=== PATIENT | female | born 1995 | race Caucasian/White ===

== ENCOUNTER 2021-04-28 18:20 | Inpatient (IN) | payer OTHER, SELFPAY ==
[2021-04-28] VITALS (54 sets, daily range): BP systolic 84–145; BP diastolic 45–82; PULSE 66–98; TEMP 36.7–37.3; O2SAT 97–100; BMI 35.3
[2021-04-28 18:18] LABS: ROM Internal Control Test YES-OK TO RESULT pt. (Internal QC)
[2021-04-28 18:19] LABS: ROM Patient Test POSITIVE (Negative)
[2021-04-28] MEDS: Lactated Ringers 500 ML 999 ML IV ×3 (18:39→20:52)
[2021-04-28 18:55] LABS: Absolute Neutrophil Count 10.1 X10^3/uL (2.0-7.7); Basophil# 0.03 X10^3/uL; Basophil% 0.2 % (0-1); Eosinophil# 0.06 X10^3/uL; Eosinophils% 0.4 % (0-5); Hematocrit 40.1 % (37-47); Hemoglobin 13.5 g/dL (12.0-15.0); Lymphocyte % 15.6 % (19-41); Mean Corp Hgb Conc 33.7 g/dL (32-36); Mean Corpuscular Hgb 32.8 pg (27.0-32.0); Mean Corpuscular Volume 97.3 fL (81-99); Mean Platelet Vol. 10.6 fl (6.2-12.0); Monocyte# 1.09 X10^3/uL; Monocyte% 8.1 % (0-10); NRBC Flagged by Analyzer 0 % (0-5); Neutrophil # 10.12 X10^3/uL (2.7-7.7); Neutrophil % 75.2 % (47-70); Platelet Count 216 K/mm3 (150-450); RBC Distribution Width CV 11.7 % (11.6-14.6); RBC Distribution Width SD 41.8 fl (35.1-43.9); Red Blood Count 4.12 M/mm3 (4.2-5.4); White Blood Count 13.5 K/mm3 (4.4-11.0)
[2021-04-28] MEDS: Lactated Ringers 1,000 ML 200 ML IV ×2 (19:15→23:44)
[2021-04-28] MEDS: fentaNYL-bupivacaine (epidural) 100 ML BAG EPIDURAL (19:41)
[2021-04-28] MEDS: Oxytocin 30 units/NS 500 ml 30 UNITS/500 ML IV.SOLN IV (21:53)
[2021-04-28] MEDS: Acetaminophen 500 MG Tablet PO (23:20)
[2021-04-29] VITALS (26 sets, daily range): BP systolic 98–133; BP diastolic 45–73; PULSE 68–88; RESP 16–18; TEMP 36.4–37.6; O2SAT 95–100
[2021-04-29] MEDS: fentaNYL-bupivacaine (epidural) 100 ML BAG EPIDURAL ×2 (00:54→05:48)
[2021-04-29] MEDS: Mag Hydrox/Al Hydrox/Simeth 30 ML UDC PO (02:43)
[2021-04-29] MEDS: Lactated Ringers 1,000 ML 200 ML IV (05:47)
--- NOTE | 2021-04-29 06:30 | PCM.HP.OB ---
HPI - General General Date of Admission: 04/28/21 HPI Narrative KULWINDER KIMBLE, is a 25 2 para 0-0-1-0 presented on 04/28/2021 with spontaneous rupture membranes. She denied gross vaginal bleeding or leaking fluid. has been complicated to date by POTS syndrome. Maternal Data Information Final CAPO: 04/23/21 Final CAPO Source: US <20 weeks Gestational age: 40 6/7 PFSH PFSH Medical History (Updated 04/29/21 @ 06:[address] Toya Kendall MD) POTS (postural orthostatic tachycardia syndrome) Home Medications prenat.vits,man,kbd-pdan-dizpd [ Vitamin] 1 tab PO DAILY 04/28/21 [History Last Taken 2 Days Ago ~04/26/21] Allergy/AdvReac Type Severity Reaction Status Date / Time mushroom Allergy Swelling Verified 04/28/21 17:24 Family History (Updated 04/28/21 @ 19:34 by Rich Cordoba) Brother Hypoplastic left heart Surgical History (Updated 04/28/21 @ 18:50 by Rich Cordoba) S/P ACL repair S/P MCL (medial collateral ligament) repair Social History Smoking Status: Former smoker History Elective abortions Hx Para 0 Spontaneous abortions Hx # Term Pregnancies Ectopic pregnancies Hx # Pregnancies Multiple births # of living children ROS Constitutional Constitutional: Denies fatigue, fever(s) or malaise Eyes Eyes: Denies change in vision ENT HEENT: Denies dizziness or headache(s) Cardiovascular Cardiovascular: Denies chest pain, dyspnea or lightheadedness Respiratory/Chest Respiratory/Chest: Denies cough or dyspnea Gastrointestinal Gastrointestinal: Denies change in bowel habits Genitourinary Genitourinary: Denies burning urination or genital lesions Integumentary Integumentary: Denies rash Neurologic Neurologic: Denies confusion, dizziness, headache(s), numbness or weakness Vital Signs Vital Signs Vital Signs: 04/28/21 17:12 04/28/21 17:13 04/28/21 17:14 Temperature 98.8 F 98.8 F Temperature Source Temporal Pulse Rate 93 92 Blood Pressure 129/79 H BP Systolic 129 BP Diastolic 79 Pulse Ox 97 97 04/28/21 18:26 04/28/21 19:19 04/28/21 19:20 Temperature Temperature Source Pulse Rate 66 72 Blood Pressure 131/81 H 145/68 H BP Systolic 131 145 BP Diastolic 81 68 Pulse Ox 99 04/28/21 19:24 04/28/21 19:25 04/28/21 19:29 Temperature Temperature Source Pulse Rate 75 Blood Pressure 141/72 H BP Systolic 141 BP Diastolic 72 Pulse Ox 99 100 04/28/21 19:30 04/28/21 19:34 04/28/21 19:35 Temperature Temperature Source Pulse Rate 81 78 Blood Pressure 135/82 H 124/75 H BP Systolic 135 124 BP Diastolic 82 75 Pulse Ox 99 04/28/21 19:40 04/28/21 19:45 04/28/21 19:50 Temperature Temperature Source Pulse Rate 77 97 95 Blood Pressure 132/73 H 132/72 H 129/60 H BP Systolic 132 132 129 BP Diastolic 73 72 60 Pulse Ox 99 99 99 04/28/21 19:55 04/28/21 20:00 04/28/21 20:05 Temperature 98.1 F Temperature Source Temporal Pulse Rate 92 91 98 Blood Pressure 129/61 H 115/55 L 123/61 H BP Systolic 129 115 123 BP Diastolic 61 55 61 Pulse Ox 98 99 98 04/28/21 20:10 04/28/21 20:15 04/28/21 20:20 Temperature Temperature Source Pulse Rate 96 85 93 Blood Pressure 112/51 L 108/58 L BP Systolic 112 108 BP Diastolic 51 58 Pulse Ox 97 98 98 04/28/21 20:22 04/28/21 20:25 04/28/21 20:26 Temperature Temperature Source Pulse Rate 93 80 Blood Pressure 96/52 L 97/52 L BP Systolic 96 97 BP Diastolic 52 52 Pulse Ox 99 04/28/21 20:30 04/28/21 20:32 04/28/21 20:35 Temperature Temperature Source Pulse Rate 87 88 Blood Pressure 104/52 L BP Systolic 104 BP Diastolic 52 Pulse Ox 98 98 04/28/21 20:36 04/28/21 20:40 04/28/21 20:45 Temperature Temperature Source Pulse Rate 91 81 86 Blood Pressure 102/47 L 101/51 L BP Systolic 102 101 BP Diastolic 47 51 Pulse Ox 98 97 04/28/21 20:50 04/28/21 20:51 04/28/21 20:52 Temperature Temperature Source Pulse Rate 76 83 Blood Pressure 85/45 L 84/48 L BP Systolic 85 84 BP Diastolic 45 48 Pulse Ox 98 04/28/21 20:55 04/28/21 21:00 04/28/21 21:03 Temperature Temperature Source Pulse Rate 76 85 80 Blood Pressure 97/53 L 134/63 H BP Systolic 97 134 BP Diastolic 53 63 Pulse Ox 98 100 04/28/21 21:05 04/28/21 21:06 04/28/21 21:10 Temperature Temperature Source Pulse Rate 73 66 72 Blood Pressure 106/58 L BP Systolic 106 BP Diastolic 58 Pulse Ox 100 100 04/28/21 21:12 04/28/21 21:13 04/28/21 21:15 Temperature 98.1 F Temperature Source Temporal Pulse Rate 80 73 Blood Pressure 116/53 L 107/55 L BP Systolic 116 107 BP Diastolic 53 55 Pulse Ox 99 04/28/21 21:20 04/28/21 21:21 04/28/21 21:25 Temperature Temperature Source Pulse Rate 74 81 Blood Pressure 112/58 L 104/51 L BP Systolic 112 104 BP Diastolic 58 51 Pulse Ox 99 99 04/28/21 21:30 04/28/21 21:32 04/28/21 21:35 Temperature Temperature Source Pulse Rate 85 82 74 Blood Pressure 121/53 H 113/52 L BP Systolic 121 113 BP Diastolic 53 52 Pulse Ox 97 98 04/28/21 21:40 04/28/21 21:46 04/28/21 23:12 Temperature 98.6 F Temperature Source Temporal Temporal Pulse Rate 75 76 Blood Pressure 113/53 L 125/59 H BP Systolic 113 125 BP Diastolic 53 59 Pulse Ox 97 04/28/21 23:16 04/28/21 23:54 04/28/21 23:55 Temperature 99.1 F 99.0 F Temperature Source Temporal Pulse Rate 78 67 Blood Pressure 104/57 L 97/47 L BP Systolic 104 97 BP Diastolic 57 47 Pulse Ox 04/28/21 23:58 04/29/21 00:56 04/29/21 01:57 Temperature 98.4 F 98.4 F Temperature Source Temporal Temporal Pulse Rate 75 72 80 Blood Pressure 94/49 L 109/52 L 111/56 L BP Systolic 94 109 111 BP Diastolic 49 52 56 Pulse Ox 97 04/29/21 03:10 04/29/21 03:11 04/29/21 03:14 Temperature 98.6 F Temperature Source Temporal Pulse Rate 71 Blood Pressure 118/57 L BP Systolic 118 BP Diastolic 57 Pulse Ox 97 04/29/21 04:13 04/29/21 04:14 04/29/21 05:43 Temperature 99.5 F H 99.7 F H Temperature Source Temporal Temporal Pulse Rate 80 88 Blood Pressure 120/57 L 133/73 H BP Systolic 120 133 BP Diastolic 57 73 Pulse Ox 99 97 Weight Weight: 99.3 kg Body Mass Index (BMI) 35.3 Physical Exam Const alert and no apparent distress General Appearance: cooperative HEENT normocephalic Resp normal respiratory effort Cardio regular rate GI soft to palpation GI Narrative: gravid, nontender, appropriate for gestational age Extremity no calf tenderness General Extremity: edema Skin no wounds Rashes: No rashes noted Psych activity/motor behavior normal Labs Labs Labs: Blood Type A POSITIVE Antibody Screen NEGATIVE Hct 40.1 % (37-47) Hgb 13.5 g/dL (12.0-15.0) Assessment & Plan (1) 40 weeks gestation of : PLAN: Patient may for spontaneous rupture membranes. Has some contractions. May have epidural, nitrous oxide or IV medications as needed for pain control. Estimated weight is less than 4500 g and pelvis clinically adequate to expect vaginal delivery. May use Pitocin as needed for augmentation of labor. (2) SROM (spontaneous rupture of membranes):
[2021-04-29] MEDS: Sodium Citrate/Citric Acid 30 ML UDC PO (06:38)
[2021-04-29] MEDS: Cefazolin 2 GM in 0.9% Normal Saline 100 ML IV (06:46)
--- NOTE | 2021-04-29 07:41 | OP.PCM_ITS ---
Assessment & Plan (1) 40 weeks gestation of : (2) Arrest of descent, delivered, current hospitalization: (3) Meconium in amniotic fluid affecting management of mother: (4) BMI 35.0-35.9,adult: (5) Maternal obesity syndrome in third trimester: Maternal Data Information Final CAPO: 04/23/21 Gestational age: 40 5/7 Details Operative Information Date of Procedure: 04/29/21 Pre-Operative Diagnosis: labor, 40 weeks, meconium fluid, arrest of descent Post-Operative Diagnosis: same Classification: DHEERAJ Procedure Type: low transverse geotechnical laboratory technician #1: Bee Wan Type of Anesthesia: Epidural Anesthesiologist: Ananth Loyd Special Medications: duramorph Antibiotic Given: Ancef 2 grams IV x1 and Zithromax 500 mg/5 mL X1 Drain: Shook to straight drain Estimated Blood Loss: 800 Fluids Replaced: 500 Procedure Start Time: 07:03 Procedure Stop Time: 07:31 Time of Delivery: 07:09 Findings Description of Procedure: The patient arrived with spontaneous rupture membranes. She progressed to complete with augmentation of labor with Pitocin. She pushed for 3-1/2 hours and was plus 4 out of 5 station. DEIDRA. Significant caput of the skull, and molding. Very significant maternal vulvar edema. Patient was not a good clinical candidate for attempted instrumental delivery. Response and alternatives to recommended primary section were discussed with patient and her and they desire to proceed. The patient was taken to the operating room. She was prepped and draped in the dorsal supine position with a leftward tilt. A Pfannenstiel skin incision was made approximately 2 cm above the symphysis pubis and carried through to underlying layer fascia with the scalpel. The fascia was incised incised in the midline and extended laterally with blunt dissection. The rectus muscles were in the midline and the peritoneum was entered bluntly. The peritoneal incision was stretched and the bladder blade was placed. The uterine incision was made in a low transverse fashion with the scalpel and extended superiorly and inferiorly with blunt dissection. I had to work my hand down past the skull as the inlet was very narrow and was very difficult to get under the skull. I was finally able to get my hand under and bring the head up with gentle slow traction until the suction was broken. The 's head was brought to the incision in the flexed position and delivered without difficulty. The remainder of the infant was delivered with gentle traction and fundal pressure in the standard fashion. The mouth and nares were bulb suctioned. The cord was clamped and cut as the infant was stimulated. Cord clamping was delayed. The was handed off to the waiting nursing staff. The placenta was delivered with fundal massage and gentle traction in the standard fashion. The uterus was exteriorized and cleared of all clots and debris. The uterine incision was closed with #1 Vicryl in a running locked fashion. A second layer of the same suture was used in an imbricating fashion. The incision was examined and was found to be hemostatic. The uterus was placed back into the peritoneal cavity and hemostasis was again confirmed. The rectus muscles were examined and any bleeding was Bovie cauterized. The parietal peritoneum and rectus muscles were closed en bloc with an 0 Vicryl running suture. The surgical teams outer gloves were then changed. The rectus fascia was examined and any bleeding was Bovie cauterized and the rectus fascia was closed with #0 PDS suture in a running standard fashion. The subcutaneous tissue was examining and any bleeding was Bovie cauterized. The skin was closed in a subcuticular fashion with Monocryl suture by tx.. I performed the entire procedure with assistance. The RAIL TRANSIT OPERATOR provided fundal pressure, tissue retraction and assistance with visualization. All sponge, lap, and needle counts were correct. The patient was taken to her room for recovery in a stable condition. Presentation: Positive for Vertex Amniotic Membrane Rupture Type: Spontaneous Amniotic Fluid Description: Lightly stained meconium Placental Delivery Description: Spontaneous Placenta Disposition: [facility] Specimen(s) Sent to Pathology: none Cord Vessel Description: 3 Vessels Cord Entanglement: None Infant A Gender: Male (Carlos) (1 minute): 9 (5 minute): 9 Delayed Cord Clamping: Yes Complications Complications: none Admit VTE Documentation VTE Present on Admission: No VTE Mechan Device Prophylaxis: SCD's VTE Pharm Prophylaxis Ordered: Yes
[2021-04-29] MEDS: Lactated Ringers 500 ML 999 ML IV (07:49)
[2021-04-29] MEDS: Oxytocin 30 units/NS 500 ml 30 UNITS/500 ML IV.SOLN 167 UNITS IV (07:55)
[2021-04-29] MEDS: Ketorolac 30 MG/ML Syringe IV ×3 (08:34→20:19)
[2021-04-29] MEDS: Acetaminophen 500 MG Tablet 1000 MG PO ×3 (09:27→21:45)
[2021-04-29] MEDS: Lactated Ringers 1,000 ML 100 ML IV (11:00)
[2021-04-29] MEDS: 0.9% Saline Lock 10 ML Syringe IV ×2 (17:04→20:19)
[2021-04-29] MEDS: Senna/Docusate Sodium 1 Tablet PO (17:04)
[2021-04-29] MEDS: Enoxaparin 40 MG/0.4 ML Syringe SC (19:30)
[2021-04-30 00:20] VITALS: BP 106/45; PULSE 84; RESP 18; TEMP 36.7; O2SAT 95
[2021-04-30] MEDS: Ketorolac 30 MG/ML Syringe IV (03:39)
[2021-04-30] MEDS: 0.9% Saline Lock 10 ML Syringe IV (03:39)
[2021-04-30] MEDS: Acetaminophen 500 MG Tablet 1000 MG PO ×4 (03:39→21:20)
[2021-04-30 03:43] VITALS: BP 108/68; PULSE 77; RESP 16; TEMP 36.5; O2SAT 96
[2021-04-30 05:27] LABS: Hematocrit 31.4 % (37-47); Hemoglobin 10.6 g/dL (12.0-15.0); Mean Corp Hgb Conc 33.8 g/dL (32-36); Mean Corpuscular Hgb 32.9 pg (27.0-32.0); Mean Corpuscular Volume 97.5 fL (81-99); Mean Platelet Vol. 10.5 fl (6.2-12.0); Platelet Count 141 K/mm3 (150-450); RBC Distribution Width CV 11.9 % (11.6-14.6); RBC Distribution Width SD 42.4 fl (35.1-43.9); Red Blood Count 3.22 M/mm3 (4.2-5.4); White Blood Count 12.6 K/mm3 (4.4-11.0)
[2021-04-30 09:15] VITALS: BP 135/60; PULSE 80; RESP 16; TEMP 36.2; O2SAT 96
[2021-04-30] MEDS: Ibuprofen 600 MG Tablet PO ×3 (09:57→21:20)
[2021-04-30] MEDS: Senna/Docusate Sodium 1 Tablet PO (09:57)
--- NOTE | 2021-04-30 12:40 | PCM.PN.OB ---
Subjective Subjective Pain well controlled, average lochia. No nausea or vomiting. Has been up to ambulate. Objective Data Objective Data Vital Signs: Vital Signs Temp Pulse Resp BP Pulse Ox 97.1 F L 80 16 135/60 H 96 04/30/21 09:15 04/30/21 09:15 04/30/21 09:15 04/30/21 09:15 04/30/21 09:15 Oxygen Delivery Method Room Air Weight: 99.3 kg Body Mass Index (BMI) 35.3 Intake & Output: Intake and Output for Last 24 Hours 04/28/21 04/29/21 04/30/21 23:59 23:59 23:59 Intake Total 2640.00 / 2640.00 4995.41 / 4995.41 Output Total 550 / 550 4950 / 4950 2099 / 2099 Balance 2089.00 / 2089.00 45.41 / 45.41 -2100 / -2100 Lab / Micro Data Result Diagrams: 04/30/21 05:00 Labs: Laboratory Results - last 24 hr 04/30/21 05:00: WBC 12.6 H, RBC 3.22 L, Hgb 10.6 L, Hct 31.4 L, MCV 97.5, MCH 32.9 H, MCHC 33.8, RDW Std Deviation 42.4, RDW Coeff of Vargas 11.9, Plt Count 141 L, MPV 10.5 Physical Exam Const alert General Appearance: cooperative GI GI Narrative: soft, moderate distention, fundus firm, appropriately tender. Abdominal bandage clean dry and intact Assessment & Plan (1) BMI 35.0-35.9,adult: (2) delivery delivered: PLAN: Postoperative day #1 status post primary section. is breast-feeding and doing well. Patient is doing well. Mild acute blood loss anemia is appropriate for blood loss during surgery. Patient is tolerating this well. Likely discharge home tomorrow. Continue routine postop care (3) Acute blood loss anemia:
[2021-04-30] MEDS: oxyCODONE 5 MG Tablet PO ×2 (12:46→18:10)
[2021-04-30 14:05] VITALS: BP 127/59; PULSE 75; RESP 16; TEMP 36.7
[2021-04-30 20:23] VITALS: BP 122/70; PULSE 81; RESP 16; TEMP 36.9; O2SAT 97
--- NOTE | 2021-04-30 20:26 | NURSING ---
pt reports mild shortness of breath while talking and laying flat in bed. pulse ox 97% on room air. head of bed elevated. pt reports improvement in shortness of breath while laying flat. lung sounds clear throughout. incentive spirometer encouraged. will continues to monitor
[2021-04-30] MEDS: Enoxaparin 40 MG/0.4 ML Syringe SC (20:29)
[2021-05-01 01:40] VITALS: BP 109/56; PULSE 75; RESP 16; TEMP 36.4; O2SAT 96
[2021-05-01] MEDS: Acetaminophen 500 MG Tablet 1000 MG PO ×2 (03:43→10:18)
[2021-05-01] MEDS: Ibuprofen 600 MG Tablet PO ×2 (03:44→10:19)
[2021-05-01 07:50] VITALS: BP 111/61; PULSE 88; RESP 18; TEMP 36.9; O2SAT 97
--- NOTE | 2021-05-01 08:39 | PN.OBGYN_ITS ---
Subjective Subjective Pain well controlled, average lochia. No nausea or vomiting. Objective Data Objective Data Vital Signs: Vital Signs Temp Pulse Resp BP Pulse Ox 98.4 F 88 18 111/61 97 05/01/21 07:50 05/01/21 07:50 05/01/21 07:50 05/01/21 07:50 05/01/21 07:50 Oxygen Delivery Method Room Air Weight: 99.3 kg Body Mass Index (BMI) 35.3 Intake & Output: Intake and Output for Last 24 Hours 04/29/21 04/30/21 05/01/21 23:59 23:59 23:59 Intake Total 4995.41 / 4995.41 Output Total 4950 / 4950 2900 / 2900 Balance 45.41 / 45.41 -2900 / -2900 Lab / Micro Data Result Diagrams: 04/30/21 05:00 Physical Exam Const alert General Appearance: cooperative GI GI Narrative: soft, moderate distention, fundus firm, appropriately tender. Abdominal bandage clean dry and intact Assessment & Plan (1) Acute blood loss anemia: (2) delivery delivered: PLAN: Postoperative day #2. Patient is doing well. Ready for discharge home today with routine instructions and prescriptions. is breast- feeding and doing well.
--- NOTE | 2021-05-01 08:41 | PCM.DC.SUM ---
Providers Date of Admission: 04/28/21 Date of Discharge: 05/01/21 Primary Care Physician: CHARANJIT Ruff Reason For Visit: C SECTION Diagnosis Discharge Diagnosis (1) Acute blood loss anemia: Status: Acute Code(s): D62 - Acute posthemorrhagic anemia (2) delivery delivered: Status: Acute Code(s): O82 - Encounter for delivery without indication Medications at Discharge Home Medications prenat.vits,man,kot-hqoz-rjfwc 1 tab PO DAILY 04/28/21 ibuprofen 600 mg PO Q6H PRN PRN 14 Days #60 tablet 05/01/21 oxycodone 5 mg PO Q6H PRN PRN 7 Days #20 tablet 05/01/21 Hospital Course Operations - (Primary low transverse section Via Pfannenstiel skin incision) Procedures None Summary of Care Provided Hospital Course: 25-year-old nulliparous patient presented with spontaneous rupture of membranes on 04/28/2021. She was responding instantaneous labor. Her labor was augmented with Pitocin. She progressed to complete and pushing. She had arrest of descent. She had a primary low transverse section performed on 04/29/2021. was performed on difficulty. Postoperative day #1 she was noted to have acute blood loss anemia appropriate for blood loss during surgery. By postoperative day #2, she was ambulating, urinating, and tolerating regular diet without difficulty. She was discharged home with routine instructions and prescriptions. The was breast-feeding and doing well. Weight / BMI Weight Weight: 99.3 kg Body Mass Index (BMI) 35.3 ABG / Lab / Microbiology Data Result Diagrams: 04/30/21 05:00 Meaningful Use Info Meaningful Use Diagnoses (Choose all that apply): None applicable Discharge Plan Admission Admit Date/Time: 04/28/21 18:20 Primary Reason for Your Visit: Labor Attending Provider: Toya Kendall Primary Care Provider: Ayesha Nielsen NP Instructions Patient Instructions: After a Discharge Orders/Prescriptions Prescriptions: New ibuprofen [ibuprofen] 600 MG tablet 600 mg PO Q6H PRN PRN (Reason: pain (scale score 4-6)) 14 Days Qty: 60 RF: 1 oxycodone 5 MG tablet 5 mg PO Q6H PRN PRN (Reason: severe pain) 7 Days Qty: 20 RF: 0 Continued prenat.vits,man,fap-exxs-jvkpv Tablet 1 tab PO DAILY RF: 0 Referrals / Follow Up: Ayesha Nielsen GREEN PIPEFITTER, GREEN PIPEFITTER-C [Primary Care Provider] - Disposition Disposition (needs filled in before D/C Order can be placed): Home, Self Care
[2021-05-01] MEDS: Senna/Docusate Sodium 1 Tablet PO (10:18)
--- NOTE | 2021-05-05 16:13 | NURSING ---
follow up phone call complete. Mother and baby doing well. Vaginal bleeding decreasing. Incision looks good- had OB appt today. Baby well
== END 2021-05-01 11:10 | disposition home or self-care (01) | DRG 786 ==
LOC: WPOUT 18:26 → WP 18:26
PROVIDERS: Admitting Provider Obstetrics & Gynecology; Referring Provider Obstetrics & Gynecology; Visit Provider Obstetrics & Gynecology
DX: O99.02 Anemia complicating childbirth (principal); D64.9 Anemia, unspecified; O99.42 Diseases of the circulatory system complicating childbirth; I49.8 Other specified cardiac arrhythmias; O77.0 Labor and delivery complicated by meconium in amniotic fluid; O62.1 Secondary uterine inertia; O12.04 Gestational edema, complicating childbirth; O99.214 Obesity complicating childbirth; E66.9 Obesity, unspecified; Z79.899 Other long term (current) drug therapy; Z87.891 Personal history of nicotine dependence; Z3A.40 40 weeks gestation of pregnancy; Z37.0 Single live birth
CPT/HCPCS: 59025; 59050; 84112; 85025; 85027; 86850; 86900; 86901; 99218; 99251; J7120; A4216; G0378; G0463; J2405

== ENCOUNTER 2023-06-24 05:05 | Inpatient (IN) | payer OTHER, SELFPAY ==
--- NOTE | 2023-06-16 16:52 | HP.PCM_ITS ---
History and Physical Date of Admission: 06/24/23 HPI: The patient is a 27 year old female presenting for pre-operative visit. She is scheduled for , for previous c/s on 06/24/23. Procedure discussed along with risks, benefits and complications. Other alternatives discussed for management. Consent form signed? Yes. ? ? PAST MEDICAL HISTORY PAST MEDICAL HISTORY Diagnosis Date ? febrile seizures ? ? none since age 10 ? Miscarriage ? ? Post depression 05/26/2021 ? POTS (postural orthostatic tachycardia syndrome) ? ? ? PAST SURGICAL HISTORY PAST SURGICAL HISTORY Procedure Laterality Date ? DELIVERY ONLY ? 04/29/2021 ? D&C, DIAG AND/OR THERAPEUTIC ? ? ? PAST SURGICAL HISTORY OF ? ? ? ACL, meniscus MCL -left knee ? ? ? CURRENT MEDICATIONS Current Outpatient Medications Medication Sig Dispense Refill ? cyanocobalamin, vitamin B-12, (VITAMIN B12 ORAL) Take by mouth. ? ? ? vit/iron fum/folic ac ( 1 + 1 ORAL) Take by mouth. ? ? ? No current facility-administered medications for this visit. ? ? ALLERGIES: Mushroom ? PERSONAL HISTORY: SOCIAL HISTORY Social History ? Tobacco Use ? Smoking status: Never ? Smokeless tobacco: Never Vaping Use ? Vaping Use: Never used Substance Use Topics ? Alcohol use: Not Currently ? ? Comment: not while ? Drug use: Not Currently ? FAMILY HISTORY: FAMILY HISTORY FAMILY HISTORY Problem Relation Age of Onset ? Arthritis Mother ? ? Prostate Cancer Father ? ? Seizures Sister ? ? other (POTS) Sister ? ? No Known Problems Sister ? ? Heart Brother ? ? left hypoplastic heart ? No Known Problems Brother ? ? Heart Maternal Grandmother ? ? Stroke Maternal Grandfather ? ? mini-strokes ? Lung Cancer Maternal Grandfather ? ? No Known Problems Son ? ? ? REVIEW OF SYMPTOMS: GENERAL: denies fevers or chills ENDOCRINOLOGY: has not been on steroids Cardiology : denies palpitations or chest pain Respiratory: denies SOB or cough Hematology: denies history of prolonged bleeding or easy bruising or VTE Allergy: Denies history of personal or family history of allergy to anesthesia ? PHYSICAL EXAMINATION: ? VITALS: Blood pressure 112/74, pulse 89, resp. rate 16, height 5' 6 (1.676 m), weight 211 lb (95.7 kg), last menstrual period 09/21/2022, SpO2 98 %. ? GENERAL: The patient is well nourished, well hydrated in no acute distress. , The patient is oriented to time, place, and person. NECK: Supple. No lynphadenopathy, normal thyroid, no thyromegaly. LUNGS: Clear to auscultation bilaterally. no wheezes, rhonchi or rales HEART: Regular rate and rhythm, Normal heart sounds, and No murmurs or gallops Abd- soft, nontender, gravid ext- 1+ edema ? IMPRESSION: Estimated Date of Delivery: 06/28/23 w/ h/o prvious c/s ? PLAN: The risks/benefits/alternatives and personal involved for the planned c- section were reviewed with the patient. Her questions were answered to her satisfaction and she desires to proceed. Consent was signed. I reviewed with her postop instructions and expectations. ? ? I have reviewed and updated past medical and surgical history, medications and allergies
[2023-06-24] VITALS (22 sets, daily range): BP systolic 87–111; BP diastolic 42–83; PULSE 56–88; RESP 12–18; TEMP 36.2–36.9; O2SAT 96–100; BMI 34.7
[2023-06-24] MEDS: Lactated Ringers 1,000 ML 999 ML IV (05:30)
[2023-06-24 05:49] LABS: Absolute Lymphocyte Count 2.59 X10^3/uL (0.83-4.51); Absolute Neutrophil Count 7.8 X10^3/uL (2.0-7.7); Basophil# 0.02 X10^3/uL; Basophil% 0.2 % (0-1); Eosinophil# 0.08 X10^3/uL; Eosinophils% 0.7 % (0-5); Hematocrit 35.1 % (37-47); Hemoglobin 12.1 g/dL (12.0-15.0); Lymphocyte # 2.59 X10^3/ul (0.83-4.51); Lymphocyte % 23.1 % (19-41); Mean Corp Hgb Conc 34.5 g/dL (32-36); Mean Corpuscular Hgb 32.9 pg (27.0-32.0); Mean Corpuscular Volume 95.4 fL (81-99); Mean Platelet Vol. 10.3 fl (6.2-12.0); Monocyte# 0.64 X10^3/uL; Monocyte% 5.7 % (0-10); NRBC Flagged by Analyzer 0 % (0-5); Neutrophil # 7.84 X10^3/uL (2.7-7.7); Neutrophil % 69.9 % (47-70); Platelet Count 186 K/mm3 (150-450); RBC Distribution Width CV 11.9 % (11.6-14.6); RBC Distribution Width SD 41.2 fl (35.1-43.9); Red Blood Count 3.68 M/mm3 (4.2-5.4); White Blood Count 11.2 K/mm3 (4.4-11.0)
[2023-06-24] MEDS: Acetaminophen 500 MG Tablet 1000 MG PO ×3 (06:40→19:06)
[2023-06-24] MEDS: Lactated Ringers 1,000 ML 150 ML IV (06:41)
[2023-06-24] MEDS: Sodium Citrate/Citric Acid 30 ML UDC PO (06:42)
[2023-06-24] MEDS: Cefazolin 2 GM in 0.9% Normal Saline (100mL Bag) 100 ML IV (07:22)
--- NOTE | 2023-06-24 07:36 | OP.PCM_ITS ---
Maternal Data Information Final CAPO: 06/28/23 Gestational age: 40 3-7 Details Operative Information Date of Procedure: 06/24/23 Pre-Operative Diagnosis: previous c/s Post-Operative Diagnosis: same Indications for : Repeat Elective Classification: Scheduled Procedure Type: low transverse tare worker #1: Zora Buchanan Type of Anesthesia: Spinal Anesthesiologist: Wisam Lucas Antibiotic Given: Ancef 2 grams IV x1 Drain: Shook to straight drain Estimated Blood Loss: 700 Fluids Replaced: 750 Procedure Start Time: 07:48 Procedure Stop Time: 08:18 Time of Delivery: 07:51 Findings Description of Procedure: The patient was taken to the operating room. She was prepped and draped in the dorsal supine position with a leftward tilt. A Pfannenstiel skin incision was made approximately 2 cm above the symphysis pubis and carried through to underlying layer fascia with the scalpel. The fascia was incised incised in the midline and extended laterally with the Ramírez scissors. The rectus muscles were in the midline and the peritoneum was entered bluntly. The peritoneal incision was stretched and the bladder blade was placed. The uterine incision was made in a low transverse fashion with the scalpel and extended superiorly and inferiorly with blunt dissection. The amniotic membranes were ruptured bluntly and clear amniotic fluid returned. The infant's head was brought to the incision in the flexed position and delivered without difficulty. The remainder of the infant was delivered with gentle traction and fundal pressure in the standard fashion. The mouth and nares were bulb suctioned. The cord was clamped and cut as the infant was stimulated. Cord clamping was delayed. The infant was handed off to the waiting nursing staff. The placenta was delivered with fundal massage and gentle traction in the standard fashion. The uterus was exteriorized and cleared of all clots and debris. The cervix was dilated with a ring forcep. The uterine incision was closed with #1 Vicryl in a running locked fashion. A second layer of the same suture was used in an imbricating fashion. The incision was examined and was found to be hemostatic. The uterus was placed back into the peritoneal cavity and hemostasis was again confirmed. The rectus muscles were examined and any bleeding was Bovie cauterized. The parietal peritoneum and rectus muscles were closed en bloc with an 0 Vicryl running suture. The surgical teams outer gloves were then changed. The rectus fascia was examined and any bleeding was Bovie cauterized and the r ectus fascia was closed with #1 PDS suture in a running standard fashion. The subcutaneous tissue was examining and any bleeding was Bovie cauterized. The subcutaneous tissue was reapproximated with 3-0 Vicryl suture. The skin was closed in a subcuticular fashion by the REGIONAL EDUCATION COORDINATOR with me present in the labor and delivery suite. I performed the remainder of the procedure with assistance. All sponge, lap, and needle counts were correct. The patient was taken to her room for recovery in a stable condition. Presentation: Positive for Vertex Amniotic Membrane Rupture Type: Artificial Amniotic Fluid Description: Clear Placental Delivery Description: Expressed Placenta Disposition: [facility] Specimen(s) Sent to Pathology: none Cord Vessel Description: 3 Vessels Cord Entanglement: None A Gender: Male (9 lb 2 oz) (1 minute): 8 (5 minute): 9 Delayed Cord Clamping: Yes Complications Complications: none
[2023-06-24 08:41] LABS: Syphilis Antibodies Non-reactive
[2023-06-24] MEDS: Oxytocin 15 Units/NS 250ml 15 UNITS/250 ML IV.SOLN 83 UNITS IV (08:44)
[2023-06-24] MEDS: Ketorolac 30 MG/ML Syringe IV ×3 (09:13→22:08)
[2023-06-24] MEDS: Ondansetron 4 MG/2 ML Vial IV (11:22)
[2023-06-24] MEDS: Lactated Ringers 1,000 ML 100 ML IV (11:22)
--- NOTE | 2023-06-24 12:17 | NURSING ---
This nursing assistant reviewed the documentation completed by Romana Duffy, student nurse.
--- NOTE | 2023-06-24 13:07 | NURSING ---
This nursing admin was present for administration of Tylenol with Romana Duffy student nurse.
[2023-06-24] MEDS: 0.9% Saline Lock 10 ML Syringe IV (22:09)
[2023-06-25] MEDS: Acetaminophen 500 MG Tablet 1000 MG PO ×4 (01:15→20:10)
[2023-06-25 03:00] VITALS: BP 93/48; PULSE 63; RESP 17; TEMP 36.3; O2SAT 98
[2023-06-25] MEDS: Ketorolac 30 MG/ML Syringe IV (04:33)
[2023-06-25] MEDS: 0.9% Saline Lock 10 ML Syringe IV (04:33)
[2023-06-25 04:49] LABS: Hematocrit 33.8 % (37-47); Hemoglobin 11.4 g/dL (12.0-15.0); Mean Corp Hgb Conc 33.7 g/dL (32-36); Mean Platelet Vol. 10.4 fl (6.2-12.0); Platelet Count 144 K/mm3 (150-450); RBC Distribution Width CV 12.1 % (11.6-14.6); RBC Distribution Width SD 43.3 fl (35.1-43.9); Red Blood Count 3.45 M/mm3 (4.2-5.4); White Blood Count 11.2 K/mm3 (4.4-11.0)
[2023-06-25] MEDS: Etonogestrel 68 MG IMPLANT SC (08:07)
[2023-06-25 08:17] VITALS: BP 99/43; PULSE 77; RESP 14; TEMP 36.9; O2SAT 97
--- NOTE | 2023-06-25 08:27 | PCM.OPRPT ---
Problems Associated Problem List Diagnoses (1) Nexplanon insertion: Report of Operation Date of Procedure: 06/25/23 Pre-Operative Diagnosis: nexplanon insertion Post-Operative Diagnosis: same Surgery/Procedure Performed:: Nexplanon insertion Description of Surgical Findings:: normal upper right arm Surgeon: Toya Kendall destination imagination coordinator: None Type of Anesthesia: Local (1 cc of 1% lidocaine ) Specimen's removed: none Estimated Blood Loss (mL): 0 Description of Procedure: Patient desires Nexplanon for contraception. Consent previously signed in the office. Consent reviewed with patient. Patient desired to proceed and questions were answered. Timeout was performed. Nursing staff present during timeout procedure. Patient's right upper arm under the triceps was prepped with Betadine. 1 cc of 1% lidocaine with dilute epinephrine solution was used to anesthetize the region. The Nexplanon was inserted in the usual sterile fashion without difficulty. Confirmation of placement in the arm was confirmed by palpation. Routine bandage was placed. Patient tolerated the procedure well. No complications. Grafts/Implants Used: nexplanon Procedure Start Time: 08:16 Procedure Stop Time: 08:17
--- NOTE | 2023-06-25 08:30 | PN_ITS ---
Progress Note Pain well controlled. Average lochia. No nausea or vomiting. Tolerating regular diet. Denies lightheadedness, visual changes, shortness of breath or palpitations. Physical Exam Const alert General Appearance: cooperative GI GI Narrative: soft, moderate distention, fundus firm, appropriately tender. Abdominal bandage clean dry and intact Assessment & Plan Assessment/Plan (1) S/P repeat low transverse : PLAN: Postoperative day status post repeat section. Hemoglobin is stable and appropriate for blood loss during surgery. Patient is ambulating and tolerating regular diet. is breast-feeding and doing well. Patient desires discharge home today if okay with registered nursing professor. Routine instructions and prescriptions given.
[2023-06-25] MEDS: Senna/Docusate Sodium 1 Tablet PO (08:34)
--- NOTE | 2023-06-25 08:34 | PCM.DC.SUM ---
Providers Date of Admission: 06/24/23 Primary Care Physician: JORDAN RuffC Reason For Visit: REPEAT CSECTION/CSECTION DELIVERY Diagnosis Discharge Diagnosis (1) S/P repeat low transverse : Status: Acute Code(s): Z98.891 - History of uterine scar from previous surgery Plan: Postoperative day status post repeat section. Hemoglobin is stable and appropriate for blood loss during surgery. Patient is ambulating and tolerating regular diet. is breast-feeding and doing well. Patient desires discharge home today if okay with weighing station operator. Routine instructions and prescriptions given. Medications at Discharge Home Medications prenat.vits,man,smm-mbqh-htsmj 1 tab PO DAILY 04/28/21 ibuprofen 600 mg tablet 600 mg PO Q6H PRN Pain 20 days #60 TABLETS 06/25/23 oxycodone 5 mg tablet 5 mg PO Q8H PRN severe pain 7 days #15 TABLETS 06/25/23 Hospital Course Summary of Care Provided Minutes Spent on Discharge: 16 Hospital Course: Patient was admitted on 06/24/2023 for repeat low transverse section that was performed without difficulty. By postoperative day #1 the patient was doing well and desired discharge home with routine instructions. The was doing well and breast-feeding. She is to follow-up in the office in 1-2 in 6 weeks or as needed. She had a Nexplanon placed on 06/25/2023 for contraception. Weight / BMI Weight Weight: 97.522 kg Body Mass Index (BMI) 34.7 ABG / Lab / Microbiology Data 06/25/23 04:39 Laboratory: Laboratory Results - last 24 hr 06/24/23 05:30: Syphilis Total Ab Non-reactive 06/25/23 04:39: WBC 11.2 H, RBC 3.45 L, Hgb 11.4 L, Hct 33.8 L, MCV 98.0, MCH 33.0 H, MCHC 33.7, RDW Std Deviation 43.3, RDW Coeff of Vargas 12.1, Plt Count 144 L, MPV 10.4 D/C Instructions Discharge Diet: No restrictions May resume sexual activity in: 4-6 weeks Lifting Restrictions: 20 pounds Additional Activity Instructions: Nothing in the vagina for 4-6 weeks. You may return to work/school in 6 weeks. Call your doctor if your incision/area has: Continuous Slow Oozing, Sudden Increased Bleeding, Increased Pain/ Swelling, Increased Redness and Foul Smelling Discharge Call your doctor if you observe: Fever of 101 or Higher and Using more than 1 pad per hour (for 2 hours) Suture Line Care: Avoid Pulling/Pushing and Avoid Pinching/Bending Cleanse incision/area with: Keep Dressing Clean & Dry Please Follow Up With: Toya Kendall MD When: Call to make an appointment for an incision check in 1-2 [phone]. You will need a post check in 6 weeks. Send [employer] message for nonurgent questions Meaningful Use Info Meaningful Use Diagnoses (Choose all that apply): None applicable Discharge Plan Admission Admit Date/Time: 06/24/23 05:05 Primary Reason for Your Visit: Repeat delivery Attending Provider: Toya Kendall Primary Care Provider: Ayesha Nielsen NP Discharge Orders/Prescriptions Prescriptions: New ibuprofen [ibuprofen] 600 mg tablet 600 mg PO Q6H PRN (Reason: Pain) 20 Days Qty: 60 0RF oxycodone 5 mg tablet 5 mg PO Q8H PRN (Reason: severe pain) 7 Days Qty: 15 0RF Continued prenat.vits,man,neg-bfsk-houiv Tablet 1 tab PO DAILY Referrals / Follow Up: Ayesha Nielsen NP, TAXONOMY TEACHER-C [Primary Care Provider] - Disposition Disposition (needs filled in before D/C Order can be placed): Home, Self Care
[2023-06-25] MEDS: Ibuprofen 600 MG Tablet PO ×3 (10:21→21:44)
[2023-06-25 14:00] VITALS: BP 106/60; PULSE 73; RESP 16; TEMP 37.1; O2SAT 100
[2023-06-25] MEDS: oxyCODONE 5 MG Tablet PO ×2 (14:18→20:09)
--- NOTE | 2023-06-25 14:21 | CASEMGMT ---
Social Work Assessment Labor and Delivery Unit Patient Address:[address] [place], [place] [address] Phone number: [phone] Date of Referral: 06/24/23 Time of Referral:? 36 Referred By: Toya Kendall Date of Intervention: 06/25/23?? Time of Intervention:? 1230 Reason for Referral:? Parental alcohlic Sw completed chart review and acknowledges social work consult due to mother of baby (RAE- Niyah) having a parent who is an alcoholic. Sw presented to bedside, introduced self to MOB and explained reason for sw involvement at this time. Sw completed psychosocial assessment, provided support and assessed for needs/ concerns. History obtained from: medical records and mother of baby (RAE)??? Household composition: Currently residing in the family home is MOB, father of baby (FABY Olea) their first child (Juan- : 04/29/21) and now baby when he is ready for discharge. Patient's parent/guardian status:?RAE states that she and ROSENDO have been together for 10 years, they met through mutual friends. Parents have two children together. No concerns regarding domestic violence or intimate partner violence. Medical History: RAE is 3, para 1- now 2. RAE received routine care during with [facility]. RAE delivered baby boy on 06/24/23 via repeat . Baby boy, named Rui Obrien, was born weighing 8lb 9oz and his apgars were 8 and 9 at one and five minutes of life respectfully. Rui will have pediatric follow up with the [facility]. Educational Status:?Both parents graduated from high school. RAE has some college education but no degree. Financial Status: Both parents are gainfully employed outside of the home. ROSENDO works at a [employer] and is able to take 10 days off of work. RAE works fro a [employer] company. Supplies:Parent have everything they need for baby including: car seat, safe sleep space, clothes, diapers, wipes and breast pump. Childcare/Caregiver(s):? RAE states that she will be the primary caregiver for baby while she is on maternity leave. 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 Transportation:??Both parents have their drivers license and have reliable means of transportation. No transportation barriers at this time. Programs/Agencies Involved: ?Family is not connected to any community resources at this time. ?? Children Services/Legal Issues:???No former involvement, no issues or concern warranting a referral to be made at this time. Behavioral Health Issues: ??Mental Health History:?RAE states that ROSENDO does not have any diagnosed mental health diagnoses. MOB states that she does not have any diagnoses but did struggle with following the of her first son. MOB states that she was anxious and had intrusive thoughts. Sw asked MOB how she is feeling now. MOB stated she feels really good and is not putting pressure on herself to breast feed if it is affecting her mental health. MOB stated a lot of her former issues were also a result of covid and she feels much different at this time. Sw educated MOB on signs and symptoms of baby blues and depression/ anxiety. MOB expressed understanding. ?? Substance Use History: MOB denies substance use prior to and during . Family History:?MOB states that her father is an alcoholic, but she does not see him. ? Drug Screens: No urine screens observed in chart review. Family/Social Stressors:? None identified at this time. Support Systems: RAE states that ROSENDO and her sister are her biggest supports. Depression/Shaken Baby/Safe Sleeping:Sw educated MOB on signs and symptoms of baby blues and depression. Sw provided MOB with list of community resources local to her should she feel as though she is struggling and be interested in getting connected to a mental health professional. MOB expressed understanding. Sw educated MOB on shaken baby prevention and ABCs of safe sleep. MOB expressed understanding. ASSESSMENT:? MOB at bedside and observed to provide hands on and loving care to baby. MOB expressed knowledge about what caused her concerns following her last delivery. MOB talkative and engaged during assessment. MOB open and receptive to sw involvement and support. PLAN:MOB and baby to be discharged when medically ready. ? ?No other services requested or indicated. Rohan Fairchild, WEIGHT CHECKER, CIRCULATION DIRECTOR
--- NOTE | 2023-06-25 15:03 | CASEMGMT ---
Social work Labor and Delivery Sw informed of need for social work consult to meet with MOB due to mother of baby (MOB- Niyah) identifying that one or more of her parents are an alcoholic. Sw presented to bedside and completed psychosocial assessment. MOB engaged appropriately and observed to provide loving hands on care to baby. Sw to submit complete psychosocial assessment at later date. It is ok for MOB and baby to be discharged when medically cleared. Rohan Fairchild, ORACLE DISTRIBUTION CONSULTANT, MULTIFOCAL BUTTON GRINDER
[2023-06-25 20:15] VITALS: BP 113/63; PULSE 79; RESP 16; TEMP 37.2; O2SAT 98
[2023-06-26] MEDS: Acetaminophen 500 MG Tablet 1000 MG PO ×2 (01:51→07:56)
[2023-06-26 03:29] VITALS: BP 121/70; PULSE 71; RESP 16; TEMP 36.9; O2SAT 98
[2023-06-26] MEDS: Ibuprofen 600 MG Tablet PO ×2 (03:29→09:57)
[2023-06-26] MEDS: oxyCODONE 5 MG Tablet PO (06:38)
[2023-06-26 08:00] VITALS: BP 118/69; PULSE 68; RESP 18; TEMP 36.6; O2SAT 98
--- NOTE | 2023-06-26 09:45 | PCM.PN.BLA ---
Progress Note Pain well controlled. Average lochia. No bowel movement but passing flatus. Tolerating regular diet. Urinating without difficulty. Physical Exam Const alert General Appearance: cooperative GI GI Narrative: soft, moderate distention, fundus firm, appropriately tender. Abdominal bandage clean dry and intact Assessment & Plan Assessment/Plan (1) S/P repeat low transverse : PLAN: Postoperative day 10 status post repeat section. Patient is doing well. Discharge home today with routine instructions and prescriptions.
[2023-06-26] MEDS: Senna/Docusate Sodium 1 Tablet PO (09:57)
== END 2023-06-26 11:00 | disposition home or self-care (01) | DRG 788 ==
PROVIDERS: Admitting Provider Obstetrics & Gynecology; Referring Provider Obstetrics & Gynecology; Visit Provider Obstetrics & Gynecology
PROC: 10D00Z1 Extraction of Products of Conception, Low, Open Approach (ICD-10-PCS; CPT 59514; principal; 2023-06-24 07:15)
DX: O34.211 Maternal care for low transverse scar from previous cesarean delivery (principal); Z37.0 Single live birth; Z3A.39 39 weeks gestation of pregnancy
CPT/HCPCS: 59025; 59050; 85025; 85027; 86780; 86850; 86900; 86901; 99221; J7120; A4216; G0378; J2405